=== PATIENT | male | born 2005 | race Caucasian/White ===

== ENCOUNTER 2023-12-23 05:19 | Emergency (ER) | payer SELFPAY ==
[~2023-12-23] VITALS: Ht 162.6 cm; Wt 83.9 kg
[2023-12-23 05:30] VITALS: BP_SYST 118; PULSE 71; RESP 18; TEMP 97.4; O2SAT 98
[2023-12-23 07:18] LABS: BASOPHILS % (AUTO) 0.3 % (0.0-2.0); EOSINOPHILS # (AUTO) 0.1 K/uL (0.0-0.4); EOSINOPHILS % (AUTO) 0.7 % (0.0-4.0); HEMATOCRIT 45.8 % (36-54); HEMOGLOBIN 15.3 g/dL (14.0-18.0); LYMPHOCYTES # (AUTO) 2.4 K/uL (1.0-5.5); LYMPHOCYTES % (AUTO) 18.5 % (20.5-51.5); MEAN CORPUSCULAR HEMOGLOBIN 30 pg (27-31); MEAN CORPUSCULAR HGB CONC 33 % (32-36); MEAN CORPUSCULAR VOLUME 89 fL (79.0-98.0); MONOCYTES # (AUTO) 0.9 K/uL (0.0-1.0); MONOCYTES % (AUTO) 7.1 % (1.7-9.3); NEUTROPHILS # (AUTO) 9.6 K/uL (1.8-7.7); NEUTROPHILS % (AUTO) 73.4 % (40.0-70.0); PLATELET COUNT (AUTO) 315 K/uL (130-430); RED BLOOD CELL COUNT(AUTO) 5.17 MIL/uL (4.2-6.2); RED CELL DISTRIBUTION WIDTH 13.6 % (9.0-15.0); WHITE BLOOD COUNT (AUTO) 13.1 K/uL (4.5-11.0)
[2023-12-23 07:24] LABS: CALCIUM 9.1 mg/dL (8.4-11.0); CREATININE 0.8 mg/dL (0.55-1.30); POTASSIUM 4.3 mmol/L (3.5-5.1)
[2023-12-23 08:14] LABS: INFLUENZA TYPE A Negative (NEGATIVE)
[2023-12-23 08:23] LABS: INFLUENZA TYPE B POSITIVE (NEGATIVE)
[2023-12-23] MEDS ORDERED: DOXY100C5 PO (08:32)
[2023-12-23] MEDS ORDERED: OSEL75CA PO (08:32)
[2023-12-23 08:43] VITALS: BP_SYST 115; PULSE 68; RESP 17; TEMP 97.6; O2SAT 99
== END 2023-12-23 08:40 | disposition home or self-care (01) ==
LOC: SED 05:19
DX: J10.08 Influenza due to other identified influenza virus with other specified pneumonia (principal); R07.89 Other chest pain; Z20.822 Contact with and (suspected) exposure to COVID-19; Z88.0 Allergy status to penicillin
CPT/HCPCS: 36415; 71046; 80048; 85025; 85379; 99284